=== PATIENT | female | born 1985 | race Caucasian/White ===

== ENCOUNTER → 2017-10-29 15:15 | Outpatient (CLI) | payer OTHER, SELFPAY ==
[2017-10-29 19:39] LABS: TSH w/ Reflex to FT4 1.05 uIU/mL (0.47-4.68)
== END ==
PROVIDERS: PCP Family Medicine; Visit Provider Family Medicine
DX: Z39.1 Encounter for care and examination of lactating mother (principal)
CPT/HCPCS: 36415; 84443

== ENCOUNTER → 2018-01-29 08:38 | Outpatient (CLI) | payer OTHER, SELFPAY ==
[2018-01-29 10:42] LABS: Hemoglobin A1C% w Est Avg Glu 4.9 % (4.0-6.0)
[2018-01-29 11:38] LABS: BUN Creatinine Ratio 15.7 (6-22); Blood Urea Nitrogen 11 mg/dL (7-17); Calcium 9.5 mg/dL (8.4-10.2); Carbon Dioxide 28 mmol/L (22-32); Chloride 102 mmol/L (98-107); Cholesterol 154 mg/dL (140-199); Estimated Glomerular Filt Rate > 60.0 mL/min (>60); Glucose 78 mg/dL (70-100); HDL Cholesterol 64 mg/dL (40-60); HEMOLYSIS < 15 (0-50); LDL Cholesterol Calculated 76 mg/dL (<100); Potassium 4.2 mmol/L (3.4-5.1); Sodium 139 mmol/L (137-145); Triglycerides 70 mg/dL (35-150)
== END ==
PROVIDERS: PCP Family Medicine; Visit Provider Family Medicine
DX: Z13.220 Encounter for screening for lipoid disorders (principal); Z78.9 Other specified health status
CPT/HCPCS: 36415; 80048; 80061; 83036

== ENCOUNTER → 2019-07-18 09:35 | Outpatient (CLI) | payer OTHER, SELFPAY ==
--- NOTE | 2019-07-18 09:36 | DI.MG.S_ITS ---
BILATERAL DIGITAL DIAGNOSTIC MAMMOGRAM 3D/2D: 07/18/2019 CLINICAL: Baseline. Left breast mass. No prior exams were available for comparison. The tissue of both breasts is extremely dense, which lowers the sensitivity of mammography. No significant masses, calcifications, or other findings are seen in either breast. IMPRESSION: INCOMPLETE: NEEDS ADDITIONAL IMAGING EVALUATION There is no mammographic abnormality seen in the left breast to correspond with the palpable abnormality, however, targeted ultrasound of the left breast is recommended and will be performed immediately following this exam. This exam was interpreted at Station ID: [id number]. NOTE: For mammograms, a report in lay terms will be sent to the patient. Approximately 15% of breast malignancies will not be visualized mammographically. In the management of a palpable breast mass, a negative mammogram must not discourage biopsy of a clinically suspicious lesion. Electronically Signed By: Roberta Conn M.D. lk/:07/18/2019 10:47:56 ACR BI-RADS Category 0: Incomplete [id number]
--- NOTE | 2019-07-18 09:36 | DI.US.S_ITS ---
ULTRASOUND OF LEFT BREAST: 07/18/2019 CLINICAL: Palpable left breast lump. Comparison is made to exam dated: 07/18/2019 [facility]. Ultrasound of the left breast was performed on the area of interest. Caldera scale images of the real-time examination were reviewed. IMPRESSION: NEGATIVE There is no sonographic evidence of malignancy. There is no mammographic or sonographic abnormality seen in the left breast to correspond with the palpable abnormality, however, clinical followup is recommended. A 5 year screening mammogram is recommended. This exam was interpreted at Station ID: [id number]. Electronically Signed By: Roberta Conn M.D. lk/:07/18/2019 10:49:04 letter sent: Clinical Evaluation Ultrasound BI-RADS: 1 Negative
== END ==
PROVIDERS: PCP Family Medicine; Referring Provider Family Medicine; Visit Provider Family Medicine
DX: R92.8 Other abnormal and inconclusive findings on diagnostic imaging of breast (principal); N63.20 Unspecified lump in the left breast, unspecified quadrant
CPT/HCPCS: 76642; 77066; G0279

== ENCOUNTER → 2019-08-15 10:37 | Outpatient (CLI) | payer OTHER, SELFPAY ==
--- NOTE | 2019-08-15 10:38 | DI.US.S_ITS ---
PROCEDURE: US PELVIC COMPLETE INDICATIONS: DATES; HISTORY ECTOPIC TECHNIQUE: Real-time scanning was performed of the pelvic organs, with image documentation. Additional endovaginal scanning was necessary due to incomplete visualization of the adnexal and endometrial structures by transabdominal scanning. COMPARISON: None. FINDINGS: Transabdominal scanning: Limited scanning through the kidneys shows no hydronephrosis. No pathologic free abdominal or pelvic fluid. Endovaginal scanning: Uterus: Uterus is normal in size at 9.8 x 5.6 x 5.9 cm. The endometrium measures 10-11 mm in combined thickness. No evidence of intrauterine gestation seen. Ovaries: Right ovary measures 3.3 x 2.2 x 1.4 cm. Left ovary measures 3.7 x 3.6 x 3.4 cm. Simple left ovarian cyst measuring 3.2 x 2.1 x 2.4 cm. Complex left ovarian cyst measuring 2.3 x 1.8 x 2.1 cm with peripheral vascularity and internal echoes IMPRESSION: No intrauterine gestation seen. Complex left ovarian cystic focus with peripheral vascularity. This could be involuting or hemorrhagic ovarian cyst however, technically, ectopic cannot be excluded. Recommend correlation with serial beta hCG values, and if necessary short interval repeat followup pelvic ultrasound in one week. No abnormal free fluid Findings were provided to Aleah Coppola by the oil transport driver at the time of the study. Dictated by: Lavell Simmons M.D. on 08/15/2019 at 13:19 Approved by: Lavell Simmons M.D. on 08/15/2019 at 13:23
[2019-08-15 15:28] LABS: Appearance Urine UA CLEAR; Bilirubin Urine UA NEGATIVE (NEGATIVE); Color Urine UA YELLOW; Glucose Urine UA NEGATIVE (Negative); Ketones Urine UA NEGATIVE (NEGATIVE); Leukocyte Esterase Urine UA NEGATIVE (NEGATIVE); Nitrite Urine UA NEGATIVE (Negative); Occult Blood Urine UA NEGATIVE (Negative); Protein Urine UA NEGATIVE (Negative); Urobilinogen Urine UA 0.2 E.U./dL (0.2)
[2019-08-15 15:46] LABS: Add Manual Diff / Slide Review NO; Basophils Absolute Auto 0 /uL (0-100); Basophils Percent Auto 0.4 % (0-2); Eosinophils Absolute Auto 0 /uL (0-450); Eosinophils Percent Auto 0.6 % (2-4); Hematocrit 39.4 % (36-46); Hemoglobin 13.7 g/dL (12.0-16.0); Lymphocytes Absolute Auto 1900 /uL (1100-4500); Lymphocytes Percent Auto 30.2 % (25-40); Mean Corpuscular HGB Conc 34.7 % (30-36); Mean Corpuscular Hemoglobin 32.9 PG (26-34); Mean Corpuscular Volume 94.8 fL (80-100); Monocytes Absolute Auto 400 /uL (0-900); Monocytes Percent Auto 6.1 % (3-14); Neutrophils Absolute Auto 4000 /uL (1500-7000); Neutrophils Percent Auto 62.7 % (50-75); Platelet Count 203 X10^3/uL (150-400); Red Blood Cell Count 4.16 X10^6/uL (4.0-5.2); Red Cell Distribution Width 11.7 % (11.6-14.8); White Blood Cell Count 6.4 X10^3/uL (4.5-11.0)
[2019-08-15 16:08] LABS: HCG Quantitative /Beta subunit 4012.2 mIU/mL
[2019-08-15 16:23] LABS: Hepatitis B Surface Antigen NEGATIVE s/c (NEGATIVE); Rubella Antibody IgG 76.2 IU/mL (>15)
[2019-08-15 16:45] LABS: HIV 1 & 2 Ab/Ag 4th Gen Combo NEGATIVE (NEGATIVE); Hep C Virus Ab w/Reflex Quant NEGATIVE s/c (NEGATIVE)
[2019-08-17 18:45] LABS: RPR Screen Nonreactive (Nonreactive)
== END ==
PROVIDERS: PCP Family Medicine; Referring Provider Family Medicine; Visit Provider Family Medicine
DX: O09.11 Supervision of pregnancy with history of ectopic pregnancy, first trimester (principal); Z36.87 Encounter for antenatal screening for uncertain dates; N83.292 Other ovarian cyst, left side
CPT/HCPCS: 36415; 76830; 76856; 80055; 81003; 84702; 86787; 86803; 86850; 86900; 86901; 87086; 87389

== ENCOUNTER → 2019-08-18 07:04 | Outpatient (CLI) | payer OTHER, SELFPAY ==
[2019-08-18 08:25] LABS: HCG Quantitative /Beta subunit 10557 mIU/mL
== END ==
PROVIDERS: PCP Family Medicine; Referring Provider Family Medicine; Visit Provider Family Medicine
DX: O00.90 Unspecified ectopic pregnancy without intrauterine pregnancy (principal)
CPT/HCPCS: 36415; 84702

== ENCOUNTER → 2019-08-21 09:23 | Outpatient (CLI) | payer OTHER, SELFPAY ==
[2019-08-21 11:02] LABS: HCG Quantitative /Beta subunit 19633 mIU/mL
== END ==
PROVIDERS: PCP Family Medicine; Referring Provider Family Medicine; Visit Provider Family Medicine
DX: Z34.90 Encounter for supervision of normal pregnancy, unspecified, unspecified trimester (principal)
CPT/HCPCS: 36415; 84702

== ENCOUNTER → 2019-08-25 07:33 | Outpatient (CLI) | payer OTHER, SELFPAY ==
--- NOTE | 2019-08-25 07:33 | DI.US.S_ITS ---
PROCEDURE: US OB <= 14 WEEKS FETUS INDICATIONS: Viability and rule out ectopic please OUTSIDE/PRIOR DATING DATA: Last menstrual period (LMP): 07/04/2019. LMP-based estimated date of delivery (JAY JAY): 04/09/20. First dating scan (date and location): 08/25/19. Estimated date of delivery (JAY JAY) from first dating scan: 04/17/2020. TECHNIQUE: Real-time scanning was performed of the fetus and maternal pelvic organs, with image documentation. Endovaginal scanning was also performed to better visualize the fetus and maternal ovaries. COMPARISON: None. FINDINGS: Embryo: There is a single intrauterine gestation with mean sac diameter measuring approximately 1.4 cm and correlating with 6 weeks and 2 days gestational age. The crown-rump length measures approximately 0.4 cm which correlates with a gestational age of approximately 6 weeks and 1 day. heart rate was not measured but cardiac activity was visualized during real-time imaging. Measurement variability in dating: +/- 4 weeks by LMP, +/- 7 days by mean sac diameter (use before 6 weeks gestation if crown-rump length not able to be measured), +/- 5 days by crown-rump length (up to 8 weeks 6 days gestation), +/- 7 days by crown-rump length (up to 13 weeks 6 days gestation). Maternal organs: There is a 2.5 x 1.9 x 2.5 cm left ovarian cyst which is slightly irregular in shape but otherwise simple in appearance. This likely represents a resolving simple cyst. There is a left corpus luteal cyst measuring 2.4 x 2.0 x 2.6 cm. Right ovary is normal in appearance. Otherwise, no suspicious ovarian/adnexal mass lesions. Limited images through the kidneys demonstrate no hydronephrosis. IMPRESSION: 1. Single living intrauterine gestation with an estimated sonographic gestational age of approximately 6 weeks and 2 days. A heart rate was not measured but cardiac activity was noted. Short interval followup imaging is recommended. 2. A 2.6 cm left corpus luteal cyst in the maternal ovary. 3. Recommend routine followup second trimester anatomic screening survey. Dictated by: Raghav Mccabe M.D. on 08/25/2019 at 10:09 Approved by: Raghav Mccabe M.D. on 08/25/2019 at 10:29
== END ==
PROVIDERS: PCP Family Medicine; Referring Provider Family Medicine; Visit Provider Family Medicine
DX: O34.81 Maternal care for other abnormalities of pelvic organs, first trimester (principal); N83.12 Corpus luteum cyst of left ovary; Z3A.01 Less than 8 weeks gestation of pregnancy
CPT/HCPCS: 76801

== ENCOUNTER → 2019-10-06 09:09 | Outpatient (CLI) | payer OTHER, SELFPAY | PROVIDERS: PCP Family Medicine; Referring Provider Family Medicine; Visit Provider Family Medicine | DX: O09.521 Supervision of elderly multigravida, first trimester (principal); Z3A.11 11 weeks gestation of pregnancy; Z36.0 Encounter for antenatal screening for chromosomal anomalies | CPT/HCPCS: 36415; 81420 ==

== ENCOUNTER → 2019-10-30 08:49 | Outpatient (CLI) | payer OTHER, SELFPAY ==
[2019-10-30 14:46] LABS: Urine N gonorrhoeae NOT DETECTED
[2019-10-30 14:47] LABS: Urine Chlamydia NOT DETECTED
== END ==
PROVIDERS: PCP Family Medicine; Visit Provider Family Medicine
DX: Z34.90 Encounter for supervision of normal pregnancy, unspecified, unspecified trimester (principal); Z11.3 Encounter for screening for infections with a predominantly sexual mode of transmission; Z11.8 Encounter for screening for other infectious and parasitic diseases; Z3A.15 15 weeks gestation of pregnancy
CPT/HCPCS: 87491; 87591

== ENCOUNTER 2019-11-09 15:40 | Emergency (ER) | payer OTHER, SELFPAY ==
[2019-11-09 15:41] VITALS: BP 128/68; PULSE 86; RESP 20; TEMP 36.8; O2SAT 100
--- NOTE | 2019-11-09 15:51 | DI.US.S_ITS ---
PROCEDURE: US PERIPH VENOUS LOW EXTREM LT INDICATIONS: RED TENDER LUMP TECHNIQUE: Real-time imaging, as well as color and pulse Doppler interrogation, were performed of the lower extremity deep veins from the inguinal ligament to the popliteal fossa. COMPARISON: None. FINDINGS: The common femoral, femoral and popliteal veins are normally compressible, and free of intraluminal thrombus. Color and pulse Doppler demonstrate normal phasic intraluminal flow. There is normal augmentation response to distal compression maneuver. Superficial venous thrombosis can be seen involving the greater saphenous vein at the level of the knee at the area of clinical concern. IMPRESSION: Negative for deep venous thrombosis. Superficial venous thrombosis is seen within the greater saphenous vein at the area of clinical concern. Dictated by: Ernesto Oneal M.D. on 11/09/2019 at 16:49 Approved by: Ernesto Oneal M.D. on 11/09/2019 at 16:51
[2019-11-09 17:28] VITALS: BP 112/70; PULSE 74; O2SAT 100
--- NOTE | 2019-11-09 17:56 | ED.EXTPRO ---
HPI - Extremity Problem General Chief complaint: Extremity Problem,Nontraumatic Stated complaint: pain and swell of left leg Time Seen by Provider: 11/09/19 15:42 Source: patient Mode of arrival: Ambulatory Limitations: no limitations History of Present Illness HPI Narrative: 34-year-old female nonsmoker at 17 weeks with a history painful engorgement of varicose veins in her lower extremities. For the past few days she has had a particularly large and painful region just superior and medial to her left knee. She denies any injury. She denies any chest pain or shortness of breath. She is not dizzy nor weak or lightheaded. She has been attempting warm compresses and elevation with minimal improvement MD Complaint: extremity pain Onset (ago): day(s) Location: left Quality: aching Radiation: none Relieving factors: nothing Exacerbating factors: range of motion and weight bearing Associated symptoms: denies other symptoms Related Data Home Medications Medication Instructions Recorded Confirmed magnesium citrate 100 mg tablet 250 mg PO #0 08/08/18 08/08/18 riboflavin (vitamin B2) 25 mg 100 mg PO DAILY tab 08/08/18 08/08/18 tablet prenat.vits,yaya,[id number] 1 tab PO DAILY 08/28/19 08/28/19 Allergies Allergy/AdvReac Type Severity Reaction Status Date / Time No Known Drug Allergies Allergy Unknown Verified 08/28/19 14:11 [NO KNOWN DRUG ALLERGIES] Review of Systems Constitutional Constitutional: Denies chills, Denies fatigue, Denies fever(s), Denies frequent falls, Denies lethargy and Denies weakness Eyes Eyes: Denies change in vision, Denies eye discharge, Denies irritation and Denies loss of vision ENT Ears, Nose, Mouth, and Throat: Denies change in voice, Denies dizziness, Denies neck pain, Denies sore throat and Denies throat swelling Cardiovascular Cardiovascular: Denies chest pain, Denies irregular heart rhythm, Denies lightheadedness, Denies palpitations, Denies dyspnea, Denies dyspnea on exertion and Denies orthopnea Respiratory Respiratory: Denies cough, Denies dyspnea, Denies dyspnea on exertion and Denies wheezing Gastrointestinal Gastrointestinal: Denies abdominal pain, Denies change in bowel habits, Denies diarrhea, Denies nausea and Denies vomiting Genitourinary Genitourinary: Denies hematuria, Denies flank pain, Denies urinary incontinence and Denies urinary urgency Musculoskeletal Musculoskeletal: Denies back pain, Denies muscle weakness, Denies neck pain, Denies numbness and Denies tingling Integumentary/Breasts Skin/Breast: Denies pruritus, Reports erythema, Denies rash, Reports skin swelling and Denies wounds Neurologic Neurologic: Denies behavioral changes, Denies confusion, Denies dizziness, Denies frequent falls, Denies loss of vision, Denies numbness, Denies tingling and Denies weakness Psychiatric Psychiatric: Denies anxiety, Denies behavioral changes, Denies confusion, Denies depression, Denies homicidal ideation and Denies suicidal ideation Endocrine Endocrine: Denies fatigue, Denies flushing and Denies palpitations Hematologic/Lymphatic Hematologic/Lymphatic: Denies easy bruising Allergic/Immunologic Allergic/Immunologic: Denies urticaria, Denies throat swelling and Denies wheezing Patient History Medical History Advanced maternal age (AMA) in (Acute) Ectopic (Resolved 2015) Left breast mass (Acute) Migraines (Chronic) (spontaneous vaginal delivery) (Acute ~09/16/17) Surgical History Status post appendectomy (Resolved 1997) [place] teeth extracted (Acute) Family History Father Hypertension COPD (chronic obstructive pulmonary disease) Mother Smoker Grandfather Diabetes mellitus Stroke Family/Other Diabetes mellitus Grandmother Congestive heart failure Grandfather No problems noted. Grandmother Hypertension Altered cardiac tissue perfusion TIA (transient ischemic attack) Family/Other DVT (deep vein thrombosis) in Family/Other Pulmonary embolism Factor V Leiden mutation Social History marital status: household members: spouse and children pets and animals: No education level: college occupational status: unemployed and other current occupational exposures/hazards: No alverto/taoism: Vood[employer] special alverto needs: No Smoking Status: Never smoker second hand exposure: No (growing up) alcohol intake: never substance use type: does not use Smoking Status: Never smoker Exam Narrative Exam Narrative: GEN: AOx3 and in mild distress EYES: Pupils are equal, round, and reactive to light and accommodation. Extraoccular muscles are intact bilaterally. There is no subconjunctival hemorrhage or exudate. CHEST: Lungs are clear to auscultation bilaterally and free of wheezes, rales, or rhonchi. Heart rate is regular rhythm, there are no murmurs, clicks, rubs, or gallops. There is no chest wall tenderness. ABD: Abdomen is soft and nontender. There is no guarding or rebound. Bowel sounds are normal in all 4 quadrants. There is no mass or organomegaly. EXT: 5 cm painful erythematous raised lesion consistent with superficial thrombophlebitis on left lower extremity proximal medial to the knee. Full painless ROM of all extremities with no loss of sensation or strength. SKIN: Warm, pink, and dry. No erythema or rash other than that which is noted above Initial Vital Signs Initial Vital Signs: Vital Signs Temperature 98.3 F 11/09/19 15:41 Pulse Rate 86 11/09/19 15:41 Respiratory Rate 20 11/09/19 15:41 Blood Pressure 128/68 11/09/19 15:41 Pulse Oximetry 100 11/09/19 15:41 Course Orders Ordered: ED Orders 11/09/19 15:51 US periph venous low extrem lt Stat Consultations Consultation #1: discussion with Dr. Correa (Heme/Onc) no recommendation for anticoagulation unless within 5cm of SFV Consultation #2: Akash (foundation relations director for OB) agrees with no anticoagulation, recommends following up Vital Signs Vital signs: Vital Signs - 8 hr 11/09/19 15:41 11/09/19 17:28 Temperature 98.3 F Pulse Rate 86 74 Respiratory Rate 20 Blood Pressure 128/68 112/70 Pulse Oximetry 100 100 MDM - Extremity (Nontraumatic) Imaging Data US - DVT: Radiologist's Impression: [address] [address] Ultrasound Report Signed Patient: Kala Poe [facility]#: [id number] : 1985Acct:[id number] Age/Sex: 34 / FDate of Service: 11/09/19 Loc: ED Accession Number: [id number] Procedure: US periph venous low extrem lt Ordering Provider: Danny Reynolds D.O. PROCEDURE: US PERIPH VENOUS LOW EXTREM LT INDICATIONS: RED TENDER LUMP TECHNIQUE: Real-time imaging, as well as color and pulse Doppler interrogation, were performed of the lower extremity deep veins from the inguinal ligament to the popliteal fossa. COMPARISON: None. FINDINGS: The common femoral, femoral and popliteal veins are normally compressible, and free of intraluminal thrombus. Color and pulse Doppler demonstrate normal phasic intraluminal flow. There is normal augmentation response to distal compression maneuver. Superficial venous thrombosis can be seen involving the greater saphenous vein at the level of the knee at the area of clinical concern. IMPRESSION: Negative for deep venous thrombosis. Superficial venous thrombosis is seen within the greater saphenous vein at the area of clinical concern. Dictated by: Ernesto Oneal M.D. on 11/09/2019 at 16:49 Approved by: Ernesto Oneal M.D. on 11/09/2019 at 16:51 [place] [address] Ultrasound Report Signed Patient: Kala Poe [facility]#: [id number] : 1985Acct:[id number] Age/Sex: 34 / FDate of Service: 11/09/19 Loc: ED Accession Number: [id number] Procedure: perip venous low extrem lt Ordering Provider: Danny Reynolds D.O. PROCEDURE: US PERIPH VENOUS LOW EXTREM LT INDICATIONS: RED TENDER LUMP TECHNIQUE: Real-time imaging, as well as color and pulse Doppler interrogation, were performed of the lower extremity deep veins from the inguinal ligament to the popliteal fossa. COMPARISON: None. FINDINGS: The common femoral, femoral and popliteal veins are normally compressible, and free of intraluminal thrombus. Color and pulse Doppler demonstrate normal phasic intraluminal flow. There is normal augmentation response to distal compression maneuver. Superficial venous thrombosis can be seen involving the greater saphenous vein at the level of the knee at the area of clinical concern. IMPRESSION: Negative for deep venous thrombosis. Superficial venous thrombosis is seen within the greater saphenous vein at the area of clinical concern. Dictated by: Ernesto Oneal M.D. on 11/09/2019 at 16:49 Approved by: Ernesto Oneal M.D. on 11/09/2019 at 16:51 Discharge Plan Departure Patient Disposition: Home Clinical Impression: Superficial thrombophlebitis Qualifiers: Superficial thrombophlebitis-Involved body area: lower extremity Laterality: left Qualified Code(s): I80.02 - Phlebitis and thrombophlebitis of superficial vessels of left lower extremity Instructions: DI for Superficial Thrombophlebitis Activity Restrictions/Additional Instructions: *You have been diagnosed with [left lower extremity thrombosed varicosity of superficial vein] *What to do: *Take medications as directed including the use of warm compresses and elevation *Follow up with your primary care provider in 2-3 days, call for an appointment. Let them know you were seen in the Emergency Department and that we ask that you be seen in follow up *Return to ER if you should have any new, worsening or concerning symptoms Prescriptions: No Action magnesium citrate 100 mg tablet 250 mg PO Qty: 0 RF: 0 riboflavin (vitamin B2) 25 mg tablet 100 mg PO DAILY RF: 0 prenat.vits,yaya,dcc-dxlh-nwgvl Tablet 1 tab PO DAILY RF: 0 Referrals: Anabella Riley DO [Primary Care Provider] -
== END 2019-11-09 17:30 | disposition home or self-care (01) ==
PROVIDERS: Emergency Provider Emergency Medicine; PCP Family Medicine
DX: I80.02 Phlebitis and thrombophlebitis of superficial vessels of left lower extremity (principal); Z3A.17 17 weeks gestation of pregnancy
CPT/HCPCS: 93971; 99283

== ENCOUNTER → 2019-11-15 08:32 | Outpatient (CLI) | payer OTHER, SELFPAY ==
[2019-11-20 08:17] LABS: AFP Value 42.9 ng/mL (.); Gest Age on Col Date 29.7 weeks (.); Gestational Age Ultrasound (.); Insulin Dep Diabetes No (.); OSBR Risk 1IN See interpretation. (.); Results Report (.); Test Results See interpretation. (.)
[2019-11-20 12:49] LABS: PDF SEE SCAN
== END ==
PROVIDERS: PCP Family Medicine; Referring Provider Family Medicine; Visit Provider Family Medicine
DX: Z34.90 Encounter for supervision of normal pregnancy, unspecified, unspecified trimester (principal); Z3A.17 17 weeks gestation of pregnancy
CPT/HCPCS: 36415; 82105

== ENCOUNTER → 2019-12-09 15:14 | Outpatient (CLI) | payer OTHER, SELFPAY ==
--- NOTE | 2019-12-09 15:17 | DI.US.S_ITS ---
PROCEDURE: US OB >= 14 WEEKS FETUS INDICATIONS: 20 WEEK ANATOMY SCAN OUTSIDE/PRIOR DATING DATA: Last menstrual period (LMP): 07/04/19. LMP-based estimated date of delivery (JAY JAY): 04/09/20. First dating scan (date and location): 08/25/19. Estimated date of delivery (JAY JAY) from first dating scan: 04/17/20. TECHNIQUE: Real-time scanning was performed of the fetus, with image documentation and biometric measurements. COMPARISON: [facility], OB <= 14 WEEKS FETUS, 08/25/2019, 8:14. FINDINGS: General: A single living intrauterine gestation is present. Presentation: Vertex. Placenta: Placental position is fundal, without previa. Amniotic fluid index: 12.6 cm, normal range is 5-24 cm. heart rate: 152 beats per minute. Maternal cervical canal: 4.5 cm long. Normal lower limit is 2.5 cm. biometrics: Biparietal diameter: 22 weeks 5 days Head circumference: 22 weeks 2 days Abdominal circumference: 22 weeks 3 days Femur length: 21 weeks 5 days Estimated gestational age from initial scan: 21 weeks 3 days Composite gestational age from present scan: 22 weeks 3 days Estimated weight and percentile: 71 g; 83rd percentile Measurement variability for biometric dating: +/- 7 days from 14 weeks to 15 weeks 6 days gestation, +/- 10 days from 16 weeks to 21 weeks 6 days gestation, +/- 2 weeks from 22 weeks to 27 weeks 6 days gestation, +/- 3 weeks for 28 weeks gestation or later. weight reference: 4500 g or EFW >90/95% is considered macrosomia or large for gestational age. EFW <10% is small for gestational age. EFW 5% or less is considered intra-uterine growth restriction. Anatomic survey: Neuro: Ventricles are non-dilated at less than 10 mm. Cisterna magna is normal at 3-11 mm. Cerebellum is normal in size and morphology. Nuchal skin fold: Normal at less than 6 mm between 14-21 weeks gestational age. Face: Nose and lips, facial profile are normal. Spine: No evidence for spina bifida. Heart: 4-chambered heart is present, with normal ventricular outflow tracts. Diaphragm: Diaphragm is intact. Stomach: Left-sided stomach is present. Kidneys: No hydronephrosis. Normal is less than 5 mm in 2nd trimester, less than 7 mm in 3rd trimester. Cord: 3-vessel cord has orthotopic insertion. Bladder: Normal in size. Extremities: All 4 extremities identified. IMPRESSION: 1. [place] living intrauterine at 22 weeks 3/7 days based on today's ultrasound. This is concordant with prior ultrasound dating. There is expected interval growth. The fetus is in the 83rd percentile for weight. 2. Normal placenta and amniotic fluid. 3. Normal and complete anatomic survey. Dictated by: Deonte Pennington [facility] Interpreted: Isabelle Mora MD on 12/09/2019 at 17:04 Approved by: Man Ferguson M.D. on 12/15/2019 at 9:49
== END ==
PROVIDERS: PCP Family Medicine; Referring Provider Family Medicine; Visit Provider Family Medicine
DX: Z36.89 Encounter for other specified antenatal screening (principal); Z3A.22 22 weeks gestation of pregnancy
CPT/HCPCS: 76811

== ENCOUNTER → 2020-01-16 10:45 | Outpatient (CLI) | payer OTHER, SELFPAY ==
[2020-01-16 13:08] LABS: Hematocrit 35.3 % (36-46); Hemoglobin 12.2 g/dL (12.0-16.0)
[2020-01-16 13:23] LABS: GTT (PREG) 1 Hour PP 50gm Dose 102 mg/dL (76-139)
== END ==
PROVIDERS: PCP Family Medicine; Referring Provider Family Medicine; Visit Provider Family Medicine
DX: Z34.90 Encounter for supervision of normal pregnancy, unspecified, unspecified trimester (principal); Z3A.25 25 weeks gestation of pregnancy
CPT/HCPCS: 36415; 82950; 85014; 85018

== ENCOUNTER → 2020-03-26 09:50 | Outpatient (CLI) | payer OTHER, SELFPAY ==
[2020-03-27 08:15] LABS: Strep Grp B PCR NEG for Grp B Strep
== END ==
PROVIDERS: PCP Family Medicine; Visit Provider Family Medicine
DX: Z3A.36 36 weeks gestation of pregnancy (principal)
CPT/HCPCS: 87653

== ENCOUNTER 2020-04-19 09:16 | Outpatient (CLI) | payer OTHER, SELFPAY ==
--- NOTE | 2020-04-19 09:45 | P.TNLD_ITS ---
Visit Information Visit Information Date of evaluation: 04/19/20 Primary OB Provider: Anabella Riley Reason for Evaluation: Yes non-stress test non-stress test reason: other (postdates) Vital Signs Vital Signs: BP 118/87 HR 69 PFSH Medical History (Updated 04/19/20 @ 09:47 by Anabella Riley DO) Advanced maternal age (AMA) in (Acute) Ectopic (Resolved 2015) Left breast mass (Acute) Migraines (Chronic) (spontaneous vaginal delivery) (Acute ~09/16/17) Surgical History Status post appendectomy (Resolved 1997) [place] teeth extracted (Acute) Family History Father Hypertension COPD (chronic obstructive pulmonary disease) Mother Smoker Grandfather Diabetes mellitus Stroke Family/Other Diabetes mellitus Grandmother Congestive heart failure Grandfather No problems noted. Grandmother Hypertension Altered cardiac tissue perfusion TIA (transient ischemic attack) Family/Other DVT (deep vein thrombosis) in Family/Other Pulmonary embolism Factor V Leiden mutation Social History marital status: household members: spouse and children pets and animals: No education level: college occupational status: unemployed and other current occupational exposures/hazards: No alverto/pentecostal: Jehovah'[employer] Witness special alverto needs: No Smoking Status: Never smoker second hand exposure: No (growing up) alcohol intake: never substance use type: does not use Evaluation Evaluation Baseline heart rate: 120 Variability: Moderate (11-25) monitor accelerations: Present monitor decelerations: Absent Uterine Contraction Intensity: Mild Category of Tracing: Reactive Diagnosis, Plan/Disposition Final Diagnosis (1) Advanced maternal age (AMA) in : Status: Acute (2) 40 weeks gestation of : Status: Acute Plan/Disposition Plan: Reactive NST. Follow up for induction in 3 days. OB Disposition: home
== END 2020-04-19 09:54 | disposition home or self-care (01) ==
LOC: LABOR 09:26 → OB 04-20 10:08
PROVIDERS: PCP Family Medicine; Referring Provider Family Medicine; Visit Provider Family Medicine
DX: O48.0 Post-term pregnancy (principal); O09.523 Supervision of elderly multigravida, third trimester; Z3A.40 40 weeks gestation of pregnancy; Z11.59 Encounter for screening for other viral diseases
CPT/HCPCS: 59025; 87635; G0378; G0379

== ENCOUNTER → 2020-04-19 10:01 | Outpatient (CLI) | payer OTHER, SELFPAY ==
[2020-04-19 11:04] LABS: COVID19 -Nasal RAPID Negative (Negative)
== END ==
PROVIDERS: PCP Family Medicine; Visit Provider Physician Assistant
DX: Z11.59 Encounter for screening for other viral diseases (principal)
CPT/HCPCS: 87635

== ENCOUNTER 2020-04-21 18:05 | Inpatient (IN) | payer OTHER, SELFPAY ==
[2020-04-21 19:31] VITALS: BP 120/71
[2020-04-21 20:01] LABS: Add Manual Diff / Slide Review NO; Basophils Absolute Auto 100 /uL (0-100); Basophils Percent Auto 0.9 % (0-2); Eosinophils Absolute Auto 0 /uL (0-450); Eosinophils Percent Auto 0.3 % (2-4); Hematocrit 39.3 % (36-46); Hemoglobin 13.3 g/dL (12.0-16.0); Lymphocytes Absolute Auto 2100 /uL (1100-4500); Mean Corpuscular HGB Conc 33.9 % (30-36); Mean Corpuscular Hemoglobin 32.5 PG (26-34); Mean Corpuscular Volume 95.7 fL (80-100); Monocytes Absolute Auto 600 /uL (0-900); Monocytes Percent Auto 6.6 % (3-14); Neutrophils Absolute Auto 5900 /uL (1500-7000); Neutrophils Percent Auto 68.2 % (50-75); Platelet Count 162 X10^3/uL (150-400); Red Blood Cell Count 4.11 X10^6/uL (4.0-5.2); Red Cell Distribution Width 12.5 % (11.6-14.8); White Blood Cell Count 8.6 X10^3/uL (4.5-11.0)
[2020-04-21] MEDS: DINOPROSTONE VAG (CERVIDIL) 10 MG VAG (20:28)
[2020-04-22] MEDS: ACETAMINOPHEN 325 MG TABLET 650 MG PO (00:38)
--- NOTE | 2020-04-22 06:51 | PM.AN.REGBLK ---
Regional Block Pre-procedure Procedure: Continuous Lumbar Epidural for L&D Attending OB provider: Anabella Riley PMH/ROS narrative: term labor, no complications Hx: No personal or family history of anesthesia problems. ASA Class: II Labs: Hct 39.3 % (36-46) 04/21/20 19:20 Plt Count 162 X10^3/uL (150-400) 04/21/20 19:20 Medications: Current Medications Generic Name Dose Route Start Last Admin Trade Name Freq PRN Reason Stop Dose Admin Acetaminophen 650 mg 04/21/20 19:10 04/22/20 00:38 Tylenol PO 650 mg Q4HR PRN Administration Fever/Mild Pain (1-3) Calcium Carbonate 1,000 mg 04/21/20 19:10 Tums PO Q2H PRN Dyspepsia Lactated Ringer's 1,000 mls @ 100 mls/hr 04/21/20 19:15 Lactated Ringers IV CONT ANUSHA Zolpidem Tartrate 5 mg 04/21/20 19:10 Ambien PO BEDTIME PRN Sleep Allergies: Allergies Allergy/AdvReac Type Severity Reaction Status Date / Time No Known Drug Allergies Allergy Unknown Verified 03/11/20 08:25 [NO KNOWN DRUG ALLERGIES] Procedure Insertion date: 04/22/20 Insertion time: 06:30 Prep/Local: betadine x3 Interspace: L2-3 Patient position: sitting Needle: 18 gauge Hustead (CSE: 27g Pencan through Hustead, clear CSF, 0.5mL 025% bupiv) Loss of resistance with: saline SATYA at (cm): 5 Catheter placed at SKIN (cm): 10 Catheter in SPACE (cm): 5 Insertion: No CSF, No Blood, No Paresthesia with insertion, No Paresthesia with injection and No Test dose reaction Initial Medications BOLUS DOSE (mL): 3 BOLUS DOSE med: 0.25% bupivacaine Infusion INFUSION: 0.125% bupivacaine and with fentanyl 2 mcg/mL Initial rate (mL/hr): 6 Subsequent interventions: after 3mL bolus and small spinal dose, BP to 80's/40's, symptomatic. 10mL IV ephedrine given. BP returned to normal, symptoms resolved. Late decelerations noted shortly thereafter, resolved with R lateral decub and oxygen Post-procedure Anesthesia time START: 06:16
--- NOTE | 2020-04-22 07:51 | PM.OBPRVD ---
Labor & Delivery Delivery date: 04/22/20 Intrapartal events: None Cervical ripening method: per Cervidil protocol Induction method: none Delivery monitor: external FHT and external uterine Route of delivery: L&D Laceration Description: Perineal - 1st Degree Estimated blood loss (mL): 200 Anesthesia type: Epidural Narrative: Called to room by RN with patient C/C/+3 with urge to push. pushing with a patient in another room. Patient pushed well with rapid descent of vertex. NSVB of a vigorous baby boy in RAHEEM position. There was no nuchal cord and easy delivery of the shoulders. [place] was placed on maternal abdomen for drying and skin to skin. 20 units of pitocin was added to remaining 1L LR and started at 300mL/hr for AMSTL. After cessation of pulsation, the cord was double clamped by CNM and cut by FOB. Hospital cord blood hold sample was collected. Gentle cord traction and single maternal push led to spontaneous, Schultze delivery of an apparently intact placenta, membranes and 3VC. Fundus immediately firm and bleeding minimal. Inspection revealed a small 1st degree perineal laceration with a 0.8cm cyst in the tissues. Cyst drained and sac removed with patient's verbal consent. Laceration repaired w/ 3.0 Chromic in the usual fashion. Epidural anesthesia was adequate. QBL 200mL. Both mother and baby stable and skin to skin as I left the room. [place] Baby 1: Infant gender: Male Presentation: vertex position: Right Occiput Anterior Placenta delivery description: Spontaneous cord vessel description: 3 Vessels score (1 min): 9 score (5 min): 9 Plan for aftercare: Routine PP care. Anticipate d/c to home in 24 hours.
--- NOTE | 2020-04-22 08:01 | PM.OBHP.1 ---
OB HPI Date/Time Date of admission: 04/21/20 Date Patient Seen: 04/22/20 Time Patient Seen: 06:45 History of Present Condition Chief complaint: MATERNITY : 3 Para: 1 Estimated Date of Delivery: 04/17/20 Estimated Gestational Age (weeks): 40w5d Narrative: Kala Poe is a 34 year old female at 40 weeks and 5 days gestation. She was admitted last night for Cervidil for cervical ripening. Overnight she progressed intact active labor and Cervidil was removed at 4:30 a.m. this morning. Patient was requesting an epidural just prior to my arrival. has been uncomplicated with normal labs and ultrasounds. Indications Indication for induction OB: post dates History of Present care: good care, initiated at week # (11), number of visits (13) and pounds weight gain (37) Dating criteria: based on 1st trimester US only Ultrasounds: normal mid trimester US Obstetrical complications: none Medical complications: none Preadmission Labs Blood type: A (+) positive -: Antibody screen: negative, GBS status: negative, HBsAG: negative, HIV: negative and RPR/VDLR: negative -: Rubella: immune and Varicella: immune HCT: 39.3 HCAB: negative Cell-free DNA: Normal male 1 hr GTT: 102 Prior (ies) History: 05/11/16 Ectopic , [place] 09/16/17 at 41 weeks, 12 hour labor, epidural, 8 lb 1.92 oz female, [facility], attempted to breast-feed x2 months Evaluation Evaluation Baseline heart rate: 120 Variability: Moderate (11-25) monitor accelerations: Present monitor decelerations: Late Contraction Frequency (minutes): 2 Uterine Contraction Intensity: Strong/Firm Cervical dilation (cm): 9 Cervical effacement (%): 100 station: -2 Laboratory results: Laboratory Tests 04/21/20 04/21/20 19:20 19:20 WBC 8.6 RBC 4.11 Hgb 13.3 Hct 39.3 MCV 95.7 MCH 32.5 MCHC 33.9 RDW 12.5 Plt Count 162 Neut % (Auto) 68.2 Lymph % (Auto) 24.0 L [place] % (Auto) 6.6 Eos % (Auto) 0.3 L Baso % (Auto) 0.9 Neut # (Auto) 5900 Lymph # (Auto) 2100 [place] # (Auto) 600 Eos # (Auto) 0 Baso # (Auto) 100 Blood Type A Positive Antibody Screen Negative PFSH Medical History Advanced maternal age (AMA) in (Acute) Ectopic (Resolved 2015) Left breast mass (Acute) Migraines (Chronic) (spontaneous vaginal delivery) (Acute ~09/16/17) Surgical History Status post appendectomy (Resolved 1997) [place] teeth extracted (Acute) Family History Father Hypertension COPD (chronic obstructive pulmonary disease) Mother Smoker Grandfather Diabetes mellitus Stroke Family/Other Diabetes mellitus Grandmother Congestive heart failure Grandfather No problems noted. Grandmother Hypertension Altered cardiac tissue perfusion TIA (transient ischemic attack) Family/Other DVT (deep vein thrombosis) in Family/Other Pulmonary embolism Factor V Leiden mutation Social History marital status: household members: spouse and children pets and animals: No education level: college occupational status: unemployed and other current occupational exposures/hazards: No alverto/worship: [employer]aeism special alverto needs: No Smoking Status: Never smoker second hand exposure: No (growing up) alcohol intake: never substance use type: does not use Meds Home Medications and Allergies Home Medications Medication Instructions Recorded Confirmed Type magnesium citrate 100 mg tablet 250 mg PO #0 08/08/18 03/11/20 History riboflavin (vitamin B2) 25 mg 100 mg PO DAILY tab 08/08/18 03/11/20 History tablet prenat.vits,yaya,[id number] 1 tab PO DAILY 08/28/19 03/11/20 History sumatriptan succinate 50 mg tablet 50 mg PO Q2-4H PRN #9 tab 04/01/20 04/01/20 Rx Allergies Allergy/AdvReac Type Severity Reaction Status Date / Time No Known Drug Allergies Allergy Unknown Verified 03/11/20 08:25 [NO KNOWN DRUG ALLERGIES] Review of Systems Review of Systems ROS: Yes All systems reviewed with the patient and are negative except as otherwise documented Exam Vital Signs (past 8 hours): Temperature 35.7? blood pressure 127/68 heart rate 75 Const General: healthy appearing and comfortable HENMT Head: normal to inspection Ears: hearing grossly normal bilaterally Nose: external nose normal Face and sinus: normal facial exam Mouth: oral mucosae normal Eyes General: appearance normal, both eyes and all related structures Neck Neck: normal visual inspection Resp Effort & Inspection: normal respiratory effort Cardio Rate: regular rate GI Other: Gravid External Female Exam: normal external appearance Manual OB Exam: dilated 9, effaced fully and station -1 Presentation: vertex Estimated Weight (lbs): 7 Back/Spine/Pelvis Back: normal to inspection Skin General: no rashes or lesions noted Extrem General: normal to inspection and no pedal edema Objective Labs Result Diagrams: 04/21/20 19:20 Labs: Laboratory Results - last 24 hr 04/21/20 04/21/20 19:20 19:20 WBC 8.6 RBC 4.11 Hgb 13.3 Hct 39.3 MCV 95.7 MCH 32.5 MCHC 33.9 RDW 12.5 Plt Count 162 Neut % (Auto) 68.2 Lymph % (Auto) 24.0 L [place] % (Auto) 6.6 Eos % (Auto) 0.3 L Baso % (Auto) 0.9 Neut # (Auto) 5900 Lymph # (Auto) 2100 [place] # (Auto) 600 Eos # (Auto) 0 Baso # (Auto) 100 Blood Type A Positive Antibody Screen Negative Assessment and Plan Assessment and Plan Assessment and Plan narrative: 34-year-old at 40 weeks and 5 days. Patient received Cervidil overnight and progressed into active labor early this morning. She received an epidural with subsequent hypotension that resolved with fluid bolus and ephedrine. There was associated decelerations down to the 90s while mom was hypotensive which resolved when mother's blood pressure improved. Anticipate vaginal delivery shortly.
[2020-04-22] MEDS: DERMOPLAST SPRAY 20% 60 ML 1 SPRAY TOP (10:11)
[2020-04-22] MEDS: IBUPROFEN 600 MG TABLET PO ×2 (10:12→16:41)
[2020-04-22] MEDS: PRENATAL VIT,CALC/IRON/FOLIC 1 TABLET 1 TAB PO (10:12)
[2020-04-22] MEDS: DOCUSATE 100 MG CAPSULE PO (10:12)
[2020-04-22] MEDS: LANOLIN OINT 7 GM 1 APPLIC TOP (10:12)
[2020-04-23] MEDS: IBUPROFEN 600 MG TABLET PO (00:38)
[2020-04-23 08:33] VITALS: BP 110/65; PULSE 75; RESP 17; TEMP 37.1
--- NOTE | 2020-04-23 08:34 | P.DS_ITS ---
Discharge Providers Provider Date of admission: 04/21/20 18:05 Discharge Date: 04/23/20 Primary care physician: Anabella Riley DO Consults: 04/23/20 08:02 Consult to [employer] Routine Comment: Discharge provider: Anabella Riley DO Summary Hospital Course Date Patient Seen: 04/23/20 Time Patient Seen: 08:00 Procedures: Spontaneous vaginal delivery Epidural analgesia Hospital Course: Patient is a 34-year-old now 2 after uncomplicated spontaneous vaginal delivery. She was brought in for post-dates induction at 40 and 5 weeks gestation and progressed after Cervidil only. She received an epidural. She had an episode of hypotension shortly after epidural placement which resolved with ephedrine and IV fluids. She went on to deliver a vigorous male infant. A second-degree laceration was repaired. There were no complications . She was ambulating, passing flatus and voiding without difficulty. Bleeding was moderate and pain controlled with ibuprofen only. Breast-feeding was going very well. She previously struggled with low milk supply with her first baby. She was advised to pump 2 to 3 times a day until her milk is in. Advised patient to call for fevers, severe pain or bleeding through more than a pad an hour. She will follow-up in clinic in 6 weeks. Peripartum Data Delivery Method: Natural Vaginal complications: none 1: Gender: Male Disposition of : home Discharge Diagnosis (1) (spontaneous vaginal delivery): Status: Acute (2) 40 weeks gestation of : Status: Acute (3) Advanced maternal age (AMA) in : Status: Acute Time Spent with Patient Time attestation: Total time spent providing and/or coordinating discharge services: Objective Labs Result Diagrams: 04/21/20 19:20 Exam Vital Signs (past 8 hours): Temperature 98.9? blood pressure 118/75 heart rate 65 respirations 14 General: Awake and alert, no acute distress. HEENT: NCAT, EOMI, moist oral mucosa CV: Regular rate and rhythm, no murmurs, rubs or gallops Lungs: CTAB, no wheezes, rales, or rhonchi Abdomen: Soft, nontender; bowel tones active; uterus firm 1 cm below umbilicus Extremities: Warm, no edema Discharge Plan Discharge Plan Patient Disposition: Home Discharge orders & Medications Prescriptions: New docusate sodium [DOK] 100 mg Capsule 100 mg PO DAILY Qty: 30 RF: 0 ibuprofen 600 mg Tablet 600 mg PO Q6HR PRN (Reason: Pain, Mild (1-3)) Qty: 30 RF: 0 Continued sumatriptan succinate 50 mg tablet 50 mg PO Q2-4H PRN (Reason: migraine headache) Qty: 9 RF: 0 magnesium citrate 100 mg tablet 250 mg PO Qty: 0 RF: 0 riboflavin (vitamin B2) 25 mg tablet 100 mg PO DAILY RF: 0 prenat.vits,yaya,bgl-[id number]-btaql Tablet 1 tab PO DAILY RF: 0 Follow up/Referrals: Anabella Riley DO [Primary Care Provider] - 6 Weeks (Pt has post appt on 06/17/2020 @ 1030am with Dr. Riley) Diet/Activity/Treatments Activity: pelvic rest Visit Report/Discharge Packet Stand Alone Forms: Discharge: Care Visit Report Forms: Patient Portal/API, Stroke Signs & Symptoms Discharge Data Primary Care Provider: Anabella Riley
[2020-04-23 08:53] VITALS: BP 110/65; PULSE 75; RESP 17; TEMP 37.1
== END 2020-04-23 09:35 | disposition home or self-care (01) | DRG 807 ==
PROVIDERS: Admitting Provider Family Medicine; PCP Family Medicine; Referring Provider Family Medicine; Visit Provider Family Medicine
DX: O48.0 Post-term pregnancy (principal); Z37.0 Single live birth; O26.53 Maternal hypotension syndrome, third trimester; Z3A.40 40 weeks gestation of pregnancy; O70.0 First degree perineal laceration during delivery; O76 Abnormality in fetal heart rate and rhythm complicating labor and delivery
CPT/HCPCS: 01967; 36415; 59050; 85025; 86850; 86900; 86901; G0379

== ENCOUNTER 2022-01-27 17:58 | Emergency (ER) | payer BC, SELFPAY ==
[2022-01-27 18:26] VITALS: BP 154/94; PULSE 76; RESP 20; TEMP 36.6; O2SAT 100; BMI 27.3
--- NOTE | 2022-01-27 18:33 | DI.RAD.S_ITS ---
PROCEDURE: XR CLAVICLE LT INDICATIONS: New deformity TECHNIQUE: 2 views of the clavicle were acquired. COMPARISON: None. FINDINGS: Bones: No fractures or dislocations. No suspicious bony lesions. Soft tissues: No suspicious soft tissue calcifications. IMPRESSION: Unremarkable left clavicle radiographs Approved by: Bipin Smith M.D. on 01/27/2022 at 17:50
--- NOTE | 2022-01-27 20:43 | PC.NURSE ---
called for patient. No answer
== END 2022-01-27 20:44 | disposition left against medical advice (07) ==
PROVIDERS: Emergency Provider Family Medicine Addiction Medicine; PCP Family Medicine
DX: M25.512 Pain in left shoulder (principal)
CPT/HCPCS: 73000; 99281

== ENCOUNTER → 2023-05-18 09:05 | Outpatient (CLI) | payer BC, SELFPAY ==
[2023-05-18 09:58] LABS: Add Manual Diff / Slide Review NO; Basophils Absolute Auto 0 /uL (0-100); Basophils Percent Auto 0.6 % (0-2); Eosinophils Absolute Auto 100 /uL (0-450); Eosinophils Percent Auto 2.1 % (2-4); Hematocrit 38.3 % (36-46); Hemoglobin 13.2 g/dL (12.0-16.0); Lymphocytes Absolute Auto 1500 /uL (1100-4500); Lymphocytes Percent Auto 35.8 % (25-40); Mean Corpuscular HGB Conc 34.4 % (30-36); Mean Corpuscular Volume 93.1 fL (80-100); Monocytes Absolute Auto 300 /uL (0-900); Monocytes Percent Auto 7.6 % (3-14); Neutrophils Absolute Auto 2200 /uL (1500-7000); Neutrophils Percent Auto 53.9 % (50-75); Platelet Count 229 X10^3/uL (150-400); Red Blood Cell Count 4.12 X10^6/uL (4.0-5.2); White Blood Cell Count 4.1 X10^3/uL (4.5-11.0)
[2023-05-18 10:28] LABS: Alanine Aminotransferase 20 IU/L (<35); Albumin 4.5 g/dL (3.5-5.0); Albumin Globulin Ratio 1.5 (1.0-2.8); Alkaline Phosphatase 45 U/L (38-126); Aspartate Aminotransferase 24 IU/L (14-36); BUN Creatinine Ratio 18.3 (6-22); Bilirubin Total 0.7 mg/dL (0.2-1.3); Blood Urea Nitrogen 13 mg/dL (7-17); Calcium 10.2 mg/dL (8.4-10.2); Carbon Dioxide 31 mmol/L (22-32); Chloride 101 mmol/L (98-107); Cholesterol 184 mg/dL (140-199); Estimated Glomerular Filt Rate > 60 mL/min (>60); Globulin 3.1 g/dL (1.7-4.1); Glucose 86 mg/dL (70-100); HDL Cholesterol 71 mg/dL (40-60); HEMOLYSIS < 15 (0-50); LDL Cholesterol Calculated 101 mg/dL (<100); Potassium 4.1 mmol/L (3.4-5.1); Sodium 138 mmol/L (137-145); Total Protein 7.6 g/dL (6.3-8.2); Triglycerides 60 mg/dL (35-150)
== END ==
PROVIDERS: PCP Family Medicine; Referring Provider Family Medicine; Visit Provider Family Medicine
DX: G43.909 Migraine, unspecified, not intractable, without status migrainosus (principal); I83.93 Asymptomatic varicose veins of bilateral lower extremities
CPT/HCPCS: 36415; 80053; 80061; 85025

== ENCOUNTER → 2023-06-30 08:53 | Outpatient (CLI) | payer BC, SELFPAY ==
[2023-06-30 09:59] LABS: Add Manual Diff / Slide Review NO; Basophils Absolute Auto 0 /uL (0-100); Basophils Percent Auto 0.6 % (0-2); Eosinophils Absolute Auto 100 /uL (0-450); Eosinophils Percent Auto 2.2 % (2-4); Hematocrit 38.5 % (36-46); Hemoglobin 13.2 g/dL (12.0-16.0); Lymphocytes Absolute Auto 1600 /uL (1100-4500); Lymphocytes Percent Auto 33.5 % (25-40); Mean Corpuscular HGB Conc 34.2 % (30-36); Mean Corpuscular Hemoglobin 31.7 PG (26-34); Mean Corpuscular Volume 92.6 fL (80-100); Monocytes Absolute Auto 500 /uL (0-900); Monocytes Percent Auto 9.7 % (3-14); Neutrophils Absolute Auto 2600 /uL (1500-7000); Platelet Count 199 X10^3/uL (150-400); Red Blood Cell Count 4.16 X10^6/uL (4.0-5.2); Red Cell Distribution Width 12.6 % (11.6-14.8); White Blood Cell Count 4.8 X10^3/uL (4.5-11.0)
== END ==
LOC: LAB 08:54
PROVIDERS: PCP Family Medicine; Referring Provider Family Medicine; Visit Provider Family Medicine
DX: G43.809 Other migraine, not intractable, without status migrainosus (principal)
CPT/HCPCS: 36415; 85025

== ENCOUNTER → 2024-10-04 08:57 | Outpatient (CLI) | payer BC, SELFPAY ==
--- NOTE | 2024-10-04 09:03 | DI.MG.S_ITS ---
MM screening mammo BI: 10/04/2024. BI-RADS: 1 CLINICAL: 39-year old female for bilateral screening mammogram. Tyrer-Cuzick lifetime risk of 19.3%. No personal or first-degree family history of breast cancer. PRIOR EXAMS 07/18/2019. MAMMOGRAPHY TECHNIQUE: 2D and 3D (tomosynthesis) digital mammographic views obtained, with additional images as needed for full coverage. Current study was also evaluated with a Computer Aided Detection (CAD) system. DENSITY D. The breasts are extremely dense, which lowers the sensitivity of mammography. MAMMOGRAPHY FINDINGS Bilateral: No suspicious mass, asymmetry, microcalcification, or other abnormality seen. IMPRESSION: * No evidence of malignancy. RECOMMENDATIONS Bilateral * Annual screening mammography. OVERALL ASSESSMENT CATEGORY BI-RADS-1: Negative. The [employer] recommends annual screening mammography beginning at age 40 for women with average risk of breast cancer. ELECTRONICALLY SIGNED: Raghav Mccabe M.D. on 10/06/2024 at 06:44:07 PM PT Interpreting Station ID: [id number]
== END ==
PROVIDERS: PCP Family Medicine; Referring Provider Family Medicine; Visit Provider Family Medicine
DX: Z12.31 Encounter for screening mammogram for malignant neoplasm of breast (principal); R92.343 Mammographic extreme density, bilateral breasts
CPT/HCPCS: 77063; 77067